=== PATIENT | male | born 1990 | race Caucasian/White ===

== ENCOUNTER 2019-10-18 11:25 | Emergency (ER) | payer SELFPAY ==
[~2019-10-18] VITALS: Ht 162.6 cm; Wt 68.5 kg
[2019-10-18 11:35] VITALS: BP 138/76; Ht 162.6 cm; Wt 68.5 kg
== END 2019-10-18 12:54 | disposition home or self-care (01) ==
LOC: ED 11:25
DX: R50.9 Fever, unspecified (principal); J02.9 Acute pharyngitis, unspecified; R09.89 Other specified symptoms and signs involving the circulatory and respiratory systems; R52 Pain, unspecified